=== PATIENT | female | born 1955 | race Caucasian/White ===

== ENCOUNTER 2016-07-30 13:14 | Emergency (ER) | payer OTHER ==
[~2016-07-30] VITALS: Ht 154.9 cm; Wt 75.4 kg
[~2016-07-30 13:14] MED LIST: ACETAMINOPHEN500 MG PO; ADVAIR 250/501 DISK IH; AMBIEN10 MG PO; ANALGESIC325 MG PO; ASPIR-TRIN325 MG PO; Ambien PO; B6 PO; BACLOFEN10 MG PO; CIPRO250 MG PO; COLACE100 MG PO; COREG12.5 M1 PO; COREG12.5 MG PO; ESKALITH300 M1 PO; GEMFIBROZIL600 MG PO; GINKGO BILOBA60 M1 PO; GLUCOPHAGE1000 MG PO; GLYBURIDE5 MG PO; LAMICTAL200 MG PO; LEVEMIR100 UNIT/2 SC; LITHIUM CARBON300 M1 PO; LITHIUM CARBON300 MG PO; LITHIUM CARBON600 MG PO; LITHOBID300 MG PO; LORAZEPAM2 MG PO; Lithium Carbonate PO; Lopid PO; NAPROSYN375 MG PO; NITROGLYCERIN0.4 MG SL; PERCOCET 5/31 TABLET PO; PLAVIX75 MG PO; PROVENTIL HFA6.7 GM IH; PROVENTIL,200 INHALA IH; Prilosec PO; Proventil,Ventolin H IH; SIMVASTATIN80 MG PO; TESSALON PERLE100 MG PO; ZANTAC150 MG PO; ZESTRIL,PRINIVI20 MG PO; ZOFRAN8 MG PO
[2016-07-30 17:30] VITALS: BP 150/64
== END 2016-07-30 17:36 | disposition home or self-care (01) ==
LOC: EME 13:14
DX: I10 Essential (primary) hypertension (principal); J45.909 Unspecified asthma, uncomplicated; F31.9 Bipolar disorder, unspecified; E11.9 Type 2 diabetes mellitus without complications; Z79.82 Long term (current) use of aspirin
CPT/HCPCS: 93005; 99281; 99285

== ENCOUNTER 2016-09-30 04:26 | Emergency (ER) | payer OTHER ==
[~2016-09-30] VITALS: Ht 154.9 cm; Wt 75.1 kg
[2016-09-30 05:06] LABS: HEMATOCRIT 37.8 % (36.0-46.0); MCH 31.6 PG (29.0-34.0); MCHC 34.9 G/DL (30.0-36.0); MCV 90.4 FL (83-99); MEAN PLAT.VOLUME 11.2 uM^3 (9.5-12.4); PLATELET COUNT 169 K/uL (156-360); RBC DIS.WIDTH-CV 11.9 % (11.8-14.6); RBC DIS.WIDTH-SD 39.2 % (39-53); RED BLOOD COUNT 4.18 M/uL (3.80-5.20); WHITE BLOOD COUNT 6.4 K/uL (4.1-10.2)
[2016-09-30 05:11] LABS: ADD MIUA? YES; BILIRUBIN NEGATIVE; BLOOD NEGATIVE; COLOR YELLOW ((YELLOW)); GLUCOSE (STRIP) 50; KETONES NEGATIVE; LEUKOCYTES SMALL; NITRITE NEGATIVE; PROTEIN (STRIP) NEGATIVE; SPECIFIC GRAVITY 1.012 (1.000-1.030); UROBILINOGEN 0.2 MG/DL (0.2-1.0)
[2016-09-30 05:15] LABS: CHLORIDE 105 mEq/L (99-109); POTASSIUM 4.5 mEq/L (3.7-5.4); SODIUM 140 mEq/L (136-147)
[2016-09-30 05:17] LABS: GLUCOSE 182 mg/dL (70-99)
[2016-09-30 05:18] LABS: ANION GAP 12 MEQ/L (2-14)
[2016-09-30 05:19] LABS: TOTAL BILIRUBIN 0.3 mg/dL (0.0-1.0)
[2016-09-30 05:20] LABS: ALKALINE PHOSPHATASE 105 IU/L (3-129)
[2016-09-30 05:21] LABS: GFR ESTIMATE (CALCULATED) > 59 mL/min/
[2016-09-30 05:22] LABS: UREA NITROGEN (BUN) 12 mg/dL (9-23)
[2016-09-30 05:24] LABS: LIPASE 19 U/L (1.0-51.0)
[2016-09-30 05:27] LABS: BACTERIA RARE /HPF; CASTS NONE SEEN /LPF; CRYSTALS NONE SEEN; EPITHELIAL CELLS RARE /HPF; MUCUS NONE SEEN /LPF; RED BLOOD CELLS NONE SEEN /HPF (0-5); UCUL ADDED? NO; WHITE BLOOD CELLS 0-5 /HPF (0-5)
[2016-09-30] MEDS ORDERED: VALIUM2 MG PO (05:44)
[2016-09-30] MEDS ORDERED: LIDOCAINE700 MG TD (05:44)
[2016-09-30 05:52] VITALS: BP 155/83
[2016-10-07] MEDS ORDERED: BACLOFEN20 MG PO (11:48)
[2016-10-07] MEDS ORDERED: COREG6.25 M1 PO (11:48)
[2016-10-07] MEDS ORDERED: NEURONTIN400 MG PO (11:49)
[2016-10-07] MEDS ORDERED: ZESTRIL30 MG PO (11:49)
[2016-10-07] MEDS ORDERED: LEVEMIR FL100 UNIT/1 SC (11:50)
[2016-10-07] MEDS ORDERED: MAGNESIUM250 MG PO (11:50)
[2016-10-07] MEDS ORDERED: VITAMIN D35000 UNIT PO (11:51)
[2016-10-07] MEDS ORDERED: CALCIUM 500 MG1 EACH PO (11:51)
[2016-10-07] MEDS ORDERED: PERCOCET 7.51 TABLET PO (11:51)
[2016-10-07] MEDS ORDERED: MELATONIN10 M4 SL (11:52)
== END 2016-09-30 05:55 | disposition home or self-care (01) ==
LOC: EME → EDBD 04:26 → EME 04:26
PROVIDERS: Emergency Medicine
DX: S33.5XXA Sprain of ligaments of lumbar spine, initial encounter (principal); X58.XXXA Exposure to other specified factors, initial encounter; I10 Essential (primary) hypertension; E11.9 Type 2 diabetes mellitus without complications
CPT/HCPCS: 74176; 80053; 81003; 83690; 85027; 99281; 99285; J1885; J2405; J7030

== ENCOUNTER 2016-10-08 20:58 | Emergency (ER) | payer OTHER ==
[~2016-10-08] VITALS: Ht 167.6 cm; Wt 75.5 kg
[~2016-10-08 20:58] MED LIST changes: +BACLOFEN20 MG PO; +CALCIUM 500 MG1 EACH PO; +COREG6.25 M1 PO; +LEVEMIR FL100 UNIT/1 SC; +LIDOCAINE700 MG TD; +MAGNESIUM250 MG PO; +MELATONIN10 M4 SL; +NEURONTIN400 MG PO; +PERCOCET 7.51 TABLET PO; +VALIUM2 MG PO; +VITAMIN D35000 UNIT PO; +ZESTRIL30 MG PO
[2016-10-08 21:50] LABS: HEMATOCRIT 32.9 % (36.0-46.0); MCH 31.6 PG (29.0-34.0); MCHC 35.3 G/DL (30.0-36.0); MCV 89.6 FL (83-99); MEAN PLAT.VOLUME 10.1 uM^3 (9.5-12.4); PLATELET COUNT 217 K/uL (156-360); RBC DIS.WIDTH-CV 11.6 % (11.8-14.6); RBC DIS.WIDTH-SD 37.4 % (39-53); RED BLOOD COUNT 3.67 M/uL (3.80-5.20); WHITE BLOOD COUNT 13.4 K/uL (4.1-10.2)
[2016-10-08 21:52] LABS: CHLORIDE 102 mEq/L (99-109); POTASSIUM 4.6 mEq/L (3.7-5.4); SODIUM 135 mEq/L (136-147)
[2016-10-08 21:55] LABS: ANION GAP 10 MEQ/L (2-14)
[2016-10-08 21:56] LABS: TOTAL BILIRUBIN 0.8 mg/dL (0.0-1.0)
[2016-10-08 21:58] LABS: ALKALINE PHOSPHATASE 135 IU/L (3-129); GFR ESTIMATE (CALCULATED) > 59 mL/min/
[2016-10-08 21:59] LABS: UREA NITROGEN (BUN) 12 mg/dL (9-23)
[2016-10-08 22:01] LABS: GLUCOSE 232 mg/dL (70-99); LIPASE 9 U/L (1.0-51.0)
[2016-10-08 23:04] LABS: ADD MIUA? YES; BILIRUBIN NEGATIVE; BLOOD NEGATIVE; COLOR YELLOW ((YELLOW)); GLUCOSE (STRIP) >=500; KETONES NEGATIVE; LEUKOCYTES MODERATE; NITRITE NEGATIVE; PROTEIN (STRIP) 30; UROBILINOGEN 0.2 MG/DL (0.2-1.0)
[2016-10-08 23:08] LABS: BACTERIA RARE /HPF; EPITHELIAL CELLS RARE /HPF; MUCUS NONE SEEN /LPF; UCUL ADDED? NO; WHITE BLOOD CELLS 40-50 /HPF (0-5)
[2016-10-09] MEDS ORDERED: ZOFRAN4 MG PO (00:36)
[2016-10-09] MEDS ORDERED: KEFLEX500 MG PO (00:36)
[2016-10-09 00:46] VITALS: BP 112/71
== END 2016-10-09 00:47 | disposition home or self-care (01) ==
LOC: EME 20:58
PROVIDERS: Emergency Medicine
DX: N39.0 Urinary tract infection, site not specified (principal); E11.65 Type 2 diabetes mellitus with hyperglycemia; J45.909 Unspecified asthma, uncomplicated; I10 Essential (primary) hypertension; I50.9 Heart failure, unspecified; E55.9 Vitamin D deficiency, unspecified; F31.9 Bipolar disorder, unspecified; Z95.5 Presence of coronary angioplasty implant and graft
CPT/HCPCS: 74177; 80053; 81003; 82010; 82800; 83605; 83690; 85027; 87086; 93005; 99281; 99284; J2270; J2405; J7030

== ENCOUNTER 2016-12-23 11:16 | Day surgery (SDC) | payer OTHER ==
[~2016-12-23] VITALS: Ht 154.9 cm; Wt 82.1 kg
[~2016-12-23 11:16] MED LIST changes: +KEFLEX500 MG PO; +LO-DOSE ASPIRIN81 M2 PO; +NEURONTIN300 MG PO; +VITAMIN D5000 UNI1 PO; +ZANTAC75 M1 PO; +ZESTRIL40 MG PO; +ZOFRAN4 MG PO
[2016-12-23 11:43] LABS: POINT-OF-CARE METER ID UU13113694
== END 2016-12-23 12:55 | disposition home or self-care (01) ==
LOC: PAIN 11:16
PROVIDERS: Anesthesiology Pain Medicine
DX: M47.26 Other spondylosis with radiculopathy, lumbar region (principal); M51.16 Intervertebral disc disorders with radiculopathy, lumbar region; M54.2 Cervicalgia; F41.8 Other specified anxiety disorders; E11.42 Type 2 diabetes mellitus with diabetic polyneuropathy; E78.5 Hyperlipidemia, unspecified; I10 Essential (primary) hypertension; E66.3 Overweight; Z68.33 Body mass index [BMI] 33.0-33.9, adult; Z79.82 Long term (current) use of aspirin; Z88.0 Allergy status to penicillin; Z79.891 Long term (current) use of opiate analgesic; Z79.4 Long term (current) use of insulin
CPT/HCPCS: 82948; J1100; J2250; J3010

== ENCOUNTER 2017-01-22 12:36 | Day surgery (SDC) | payer OTHER ==
[~2017-01-22] VITALS: Ht 154.9 cm; Wt 86.2 kg
[~2017-01-22 12:36] MED LIST changes: +CYMBALTA60 MG PO
[2017-01-22 13:27] LABS: POINT-OF-CARE METER ID UU13113694
== END 2017-01-22 14:25 | disposition home or self-care (01) ==
LOC: PAIN 12:36 → SDC 13:00 → PAIN 14:25
PROVIDERS: Anesthesiology Pain Medicine
DX: M47.26 Other spondylosis with radiculopathy, lumbar region (principal); M51.16 Intervertebral disc disorders with radiculopathy, lumbar region; F41.8 Other specified anxiety disorders; I25.10 Atherosclerotic heart disease of native coronary artery without angina pectoris; E11.42 Type 2 diabetes mellitus with diabetic polyneuropathy; K21.9 Gastro-esophageal reflux disease without esophagitis; E78.5 Hyperlipidemia, unspecified; I10 Essential (primary) hypertension; E66.3 Overweight; Z68.35 Body mass index [BMI] 35.0-35.9, adult; Z86.73 Personal history of transient ischemic attack (TIA), and cerebral infarction without residual deficits; Z95.5 Presence of coronary angioplasty implant and graft; Z79.82 Long term (current) use of aspirin; Z79.4 Long term (current) use of insulin; Z79.891 Long term (current) use of opiate analgesic; Z88.0 Allergy status to penicillin
CPT/HCPCS: 82948; J1100; J2250; J3010

== ENCOUNTER 2017-08-17 01:47 | Inpatient (IN) | payer OTHER ==
[~2017-08-17] VITALS: Ht 154.9 cm; Wt 86.5 kg
[2017-08-17 02:32] LABS: HEMATOCRIT 37.2 % (36.0-46.0); HEMOGLOBIN 13.5 G/DL (11.9-15.5); MCH 31.8 PG (29.0-34.0); MCHC 36.3 G/DL (30.0-36.0); MCV 87.7 FL (83-99); PLATELET COUNT 200 K/uL (156-360); RBC DIS.WIDTH-CV 11.9 % (11.8-14.6); RBC DIS.WIDTH-SD 38.2 % (39-53); RED BLOOD COUNT 4.24 M/uL (3.80-5.20); WHITE BLOOD COUNT 6.7 K/uL (4.1-10.2)
[2017-08-17 02:37] LABS: INTER. NORMALIZED RATIO 0.9
[2017-08-17 02:40] LABS: ALBUMIN 3.8 g/dL (3.2-4.8); CHLORIDE 101 mEq/L (99-109); POTASSIUM 4.3 mEq/L (3.7-5.4); PTT 26.1 SEC (25-37); SODIUM 135 mEq/L (136-147)
[2017-08-17 02:41] LABS: MAGNESIUM 1.9 mg/dL (1.3-2.7)
[2017-08-17 02:43] LABS: TOTAL PROTEIN 6.2 g/dL (6.4-8.3)
[2017-08-17 02:45] LABS: TOTAL BILIRUBIN 0.3 mg/dL (0.0-1.0)
[2017-08-17 02:46] LABS: ALKALINE PHOSPHATASE 123 IU/L (3-129); CREATININE 0.9 mg/dL (0.6-1.3); GFR ESTIMATE (CALCULATED) > 59 mL/min/
[2017-08-17 02:47] LABS: UREA NITROGEN (BUN) 17 mg/dL (9-23)
[2017-08-17 02:48] LABS: AST (GOT) 13 IU/L (2-34)
[2017-08-17 02:49] LABS: ALT (GPT) 17 IU/L (3-49); CREATINE KINASE 35 IU/L (1-294); TOTAL CK 35 IU/L (1-294)
[2017-08-17 02:53] LABS: TROP-I INTERPRETATION NEGATIVE; TROPONIN-I < 0.01 ng/mL (0.0-0.30)
[2017-08-17 02:55] LABS: CKMB RELATIVE INDEX 2.9 (0.0-3.9); GLUCOSE 421 mg/dL (70-99)
[2017-08-17 05:59] VITALS: BP 176/74
[2017-08-17 07:30] LABS: TROP-I INTERPRETATION NEGATIVE; TROPONIN-I < 0.01 ng/mL (0.0-0.30)
[2017-08-17 09:36] VITALS: BP 138/63
[2017-08-17 11:43] VITALS: BP 189/80
[2017-08-17 14:58] LABS: TROP-I INTERPRETATION NEGATIVE; TROPONIN-I < 0.01 ng/mL (0.0-0.30)
[2017-08-17 15:50] VITALS: BP 162/85
[2017-08-17 19:31] VITALS: BP 158/72
[2017-08-18] VITALS (8 sets, daily range): BP systolic 127–213; BP diastolic 60–83
[2017-08-18 06:11] LABS: PTT 28.1 SEC (25-37)
[2017-08-18] MEDS ORDERED: CYMBALTA60 MG PO (13:58)
[2017-08-18] MEDS ORDERED: GLYBURIDE2.5 MG PO (13:59)
[2017-08-18] MEDS ORDERED: ASPIRIN EC325 MG PO (14:53)
[2017-08-19 04:04] VITALS: BP 120/56
[2017-08-19 07:30] VITALS: BP 113/90
[2017-08-19 08:00] VITALS: BP 125/60; BP 134/63
[2017-08-19 09:17] LABS: HEMATOCRIT 41.7 % (36.0-46.0); HEMOGLOBIN 14.8 G/DL (11.9-15.5); MCH 31.7 PG (29.0-34.0); MCHC 35.5 G/DL (30.0-36.0); MCV 89.3 FL (83-99); PLATELET COUNT 233 K/uL (156-360); RBC DIS.WIDTH-CV 12.3 % (11.8-14.6); RBC DIS.WIDTH-SD 40.3 % (39-53); RED BLOOD COUNT 4.67 M/uL (3.80-5.20)
[2017-08-19 09:41] LABS: ALKALINE PHOSPHATASE 104 IU/L (3-129); ALT (GPT) 15 IU/L (3-49); AST (GOT) 12 IU/L (2-34); CHLORIDE 103 MEQ/L (99-109); CREATININE 0.7 MG/DL (0.6-1.3); GFR ESTIMATE (CALCULATED) > 59 mL/min/; POTASSIUM 4.2 MEQ/L (3.7-5.4); SODIUM 138 MEQ/L (136-147); TOTAL BILIRUBIN 0.6 MG/DL (0.0-1.0); TOTAL PROTEIN 6.3 G/DL (6.4-8.3); UREA NITROGEN (BUN) 17 mg/dL (9-23)
[2017-08-19 09:50] LABS: GLUCOSE 202 mg/dL (70-99)
[2017-08-19 10:13] LABS: APPEARANCE SL.HAZY ((CLEAR)); BILIRUBIN NEGATIVE; BLOOD NEGATIVE; COLOR YELLOW ((YELLOW)); GLUCOSE (STRIP) >=500; KETONES NEGATIVE; LEUKOCYTES NEGATIVE; NITRITE NEGATIVE; PROTEIN (STRIP) NEGATIVE; SPECIFIC GRAVITY 1.013 (1.000-1.030); UROBILINOGEN 0.2 MG/DL (0.2-1.0)
[2017-08-19 10:33] LABS: BACTERIA NONE SEEN /HPF; EPITHELIAL CELLS RARE /HPF; HYALINE CASTS 15-20 /LPF; MUCUS TRACE /LPF; RED BLOOD CELLS 0-5 /HPF (0-5); UCUL ADDED? YES
[2017-08-19 11:14] VITALS: BP 110/55
[2017-08-19 19:00] VITALS: BP 141/76
[2017-08-20 00:43] VITALS: BP 110/53
[2017-08-20 04:00] VITALS: BP 116/59
[2017-08-20 08:26] VITALS: BP 131/63
[2017-08-20] MEDS ORDERED: NIFEDIPINE ER90 MG PO (11:43)
[2017-08-20] MEDS ORDERED: ATORVASTATIN CA40 MG PO (11:43)
[2017-08-20] MEDS ORDERED: CARVEDILOL12.5 MG PO (11:45)
[2017-08-20 12:55] VITALS: BP 122/58
== END 2017-08-20 14:22 | disposition home or self-care (01) | DRG 287 ==
LOC: EME → EDBD 01:47 → EME 01:47 → 5WEST 04:38 → EDOF 04:38 → ENRESERV 04:43 → 5WEST 05:53 → ENRESERV 08-19 15:20 → CANRESERV 08-19 15:20 → 5WEST 08-20 14:22
PROVIDERS: Emergency Medicine; Hospitalist; Nurse Practitioner Family
DX: I25.10 Atherosclerotic heart disease of native coronary artery without angina pectoris (principal); Z68.43 Body mass index [BMI] 50.0-59.9, adult; E87.2 Acidosis; E66.9 Obesity, unspecified; K44.9 Diaphragmatic hernia without obstruction or gangrene; K21.9 Gastro-esophageal reflux disease without esophagitis; J45.909 Unspecified asthma, uncomplicated; I10 Essential (primary) hypertension; E11.65 Type 2 diabetes mellitus with hyperglycemia; E78.5 Hyperlipidemia, unspecified; F31.9 Bipolar disorder, unspecified; F41.9 Anxiety disorder, unspecified; Z79.4 Long term (current) use of insulin; Z95.5 Presence of coronary angioplasty implant and graft; Z82.62 Family history of osteoporosis; Z82.5 Family history of asthma and other chronic lower respiratory diseases; Z82.49 Family history of ischemic heart disease and other diseases of the circulatory system; Z82.3 Family history of stroke; Z82.0 Family history of epilepsy and other diseases of the nervous system; Z88.0 Allergy status to penicillin; Z91.040 Latex allergy status
CPT/HCPCS: 71046; 78452; 80048; 80053; 81003; 82550 91; 82553; 82948; 83735; 84484; 85027; 85347; 85379; 85610; 85730; 87086; 93005; 93017; 99281; 99285; A9500; C1887; G0378; J0153; J0360; J1644; J1650; J1815; J2250; J2405; J2785; J3010; J7040